=== PATIENT | female | born 1980 | race Caucasian/White ===

== ENCOUNTER 2018-08-23 11:02 | Day surgery (SDC) | payer MEDICAID, SELFPAY ==
[2018-08-23] VITALS (7 sets, daily range): BP systolic 111–136; BP diastolic 76–86; PULSE 65–74; RESP 16–18; TEMP 36.3–36.8; O2SAT 100; BMI 20.2
[2018-08-23 11:33] LABS: Internal QC Validated? YES +Cl - CLEAR BKGD; Pregnancy, Urine Negative Negative
--- NOTE | 2018-08-23 12:15 | RAD_ITS ---
PROCEDURE: Caudal block. DATE OF EXAMINATION: August 23, 2018. INDICATION: Female, 37 years old. Low back pain. FLUOROSCOPY TIME (if supplied): (0:07) minutes/seconds. 2 Cone down intraoperative views were obtained. Intraoperative fluoroscopic services provided for caudal block. RAD/Fluor Guidance for Spine Inj IMPRESSION: Intraoperative fluoroscopic services provided for caudal block. Electronically Signed: Riccardo Segal MD at 14:55 EDT Tel [phone], Service support ,
[2018-08-23] MEDS: Triamcinolone Acetonide 40 MG/ML Vial (13:07)
--- NOTE | 2018-08-23 13:13 | PCM.DC ---
- Discharge Diagnoses Current Active Problems: Lower back pain and radiating right leg pain You will use the following diet at home:: No restrictions Your food should be the consistency of: Regular Discharge Activity: Return to Normal Activity Return to work on:: 08/26/18 May resume sexual activity in: No Restrictions Weight Bearing Status: Weight bearing as tolerated Call your doctor if your incision/area has: Continuous Slow Oozing, Increased Pain/ Swelling, Swelling at the incision site Call your doctor if you observe: Fever of 101 or Higher, Calf discomfort, Uncontrolled pain Suture Line Care: Avoid Pulling/Pushing, Avoid Pinching/Bending Change Dressing in (Days):: 1 Remove Dressing in (days):: 1 Cleanse incision/area with: Soap & Water Instructions: What Is Osteoarthritis? Allergies/Adverse Reactions: Allergies codeine Allergy (Verified 08/19/18 13:48) Shortness of breath Medications to take at Discharge Cyclobenzaprine [Flexeril] 5 mg PO TID PRN PRN 08/19/18 Nabumetone [Relafen] 750 mg PO BID PRN 08/19/18 Quetiapine Fumarate [Seroquel] 50 mg PO QHS 08/19/18 Venlafaxine XR [Effexor Xr] 37.5 mg PO BID 08/19/18 Primary Care Physician: [facility] ,Out of [Primary Care Provider] - Test Results: Test results from this visit will be discussed in further detail at your follow-up appointment, if applicable. Please Follow Up With: Constanza Cruz MD
--- NOTE | 2018-08-23 13:16 | DCINST_ITS ---
- Discharge Diagnoses Current Active Problems: Lower back pain and radiating right leg pain You will use the following diet at home:: No restrictions Your food should be the consistency of: Regular Discharge Activity: Return to Normal Activity Return to work on:: 08/26/18 May resume sexual activity in: No Restrictions Weight Bearing Status: Weight bearing as tolerated Call your doctor if your incision/area has: Continuous Slow Oozing, Increased Pain/ Swelling, Swelling at the incision site Call your doctor if you observe: Fever of 101 or Higher, Calf discomfort, Uncontrolled pain Suture Line Care: Avoid Pulling/Pushing, Avoid Pinching/Bending Change Dressing in (Days):: 1 Remove Dressing in (days):: 1 Cleanse incision/area with: Soap & Water Instructions: What Is Osteoarthritis? Allergies/Adverse Reactions: Allergies codeine Allergy (Verified 08/19/18 13:48) Shortness of breath Medications to take at Discharge Cyclobenzaprine [Flexeril] 5 mg PO TID PRN PRN 08/19/18 Nabumetone [Relafen] 750 mg PO BID PRN 08/19/18 Quetiapine Fumarate [Seroquel] 50 mg PO QHS 08/19/18 Venlafaxine XR [Effexor Xr] 37.5 mg PO BID 08/19/18 Primary Care Physician: [facility] ,Out of [Primary Care Provider] - Test Results: Test results from this visit will be discussed in further detail at your follow- up appointment, if applicable. Please Follow Up With: Constanza Cruz MD
--- NOTE | 2018-08-23 13:16 | PCM.OPRPT ---
Problem List (1) Lumbar postlaminectomy syndrome Status: Acute (2) Lumbar postlaminectomy syndrome Status: Acute (3) Other intervertebral disc degeneration, lumbar region Status: Acute (4) Postlaminectomy syndrome, not elsewhere classified Status: Acute (5) Postlaminectomy syndrome, not elsewhere classified Status: Acute (6) Radiculopathy of lumbar region Status: Acute (7) Radiculopathy of lumbar region Status: Acute Report of Operation Date of Procedure: 08/23/18 Pre-Operative Diagnosis: Lumbar postlaminectomy syndrome and lumbar radiculopathy Post-Operative Diagnosis: See above Surgery/Procedure Performed:: Caudal epidural steroid injection under fluoroscopy guidance and monitored conscious sedation Type of Anesthesia:: Local MAC, MAC Special Medications: Kenalog 80 mg and diluted lidocaine 0.5%/preservative-free normal saline. p Betadine Specimen's removed: None Estimated Blood Loss (mL): None Description of Procedure: Under sterile conditions. Patient placed in the prone position, pressure points were padded, patient was ready from the nursing and the anesthesia team. After identification of the side and the target area for the block under guided fluoroscopy, the entry site was marked with marking pen. I used Betadine for sterilization of the skin, sterile draping were applied. Using 25-gauge needle to infiltrate the skin with local anesthesia using preservative-free lidocaine 0.5% injected 5 mL at site of entry. Using guided fluoroscopy, accessed the the posterior caudal /sacral epidural space using 22-gauge spinal needle under midline approach, access to the sacrococcygeal ligament passed through easily under fluoroscopy guidance, accessed the site was assisted with lateral fluoroscopy, negative aspiration of CSF and blood. Injected contrast solution [2.5] mL under live fluoroscopy which showed good spread of the contrast to the posterior sacral and lower lumbar epidural space and to the targeted area directed to the right/up to the level of o[ L4-5]. Injected [5] mL of mixture of preservative-free lidocaine 0.5% diluted with preservative-free normal saline and Kenalog [80] mg for the procedure which showed appropriate spread in the lumbosacral epidural space. Westhoff was removed, pressure dressing were applied. Patient tolerated the procedure well and was taken to the recovery. - Complications None
== END 2018-08-23 14:23 | disposition home or self-care (01) ==
LOC: SDC 11:03 → AC 11:04
PROVIDERS: Referring Provider Anesthesiology; Visit Provider Anesthesiology
PROC: 3E0S3BZ Introduction of Anesthetic Agent into Epidural Space, Percutaneous Approach (ICD-10-PCS; CPT 62282; principal; 2018-08-23 12:10)
DX: M96.1 Postlaminectomy syndrome, not elsewhere classified (principal); M51.16 Intervertebral disc disorders with radiculopathy, lumbar region; F12.90 Cannabis use, unspecified, uncomplicated; F41.9 Anxiety disorder, unspecified; F32.9 Major depressive disorder, single episode, unspecified; Z79.899 Other long term (current) drug therapy; F17.210 Nicotine dependence, cigarettes, uncomplicated; G25.81 Restless legs syndrome
CPT/HCPCS: 62323; 64483; 77003; 81025; J7120; J3490

== ENCOUNTER 2018-09-11 12:30 | Outpatient (RCR) | payer MEDICAID, SELFPAY ==
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
--- NOTE | 2018-08-13 15:02 | HP.PT.NRP ---
HP - Discharge Summary (1) - Patient Information LEIGHTON NEWBERRY was seen in my office for initial evaluation on 07/26/18. The following Plan of Care was established for this patient: Initial Frequency: 2x /Week Initial Duration: 4 Weeks - Anticipated Interventions Patient/Client Instruction: Educate patient on: Condition, Plan of Care For the Purpose of:: To improve self management Therapeutic Exercise to Include: Strength training, Endurance training, Body mechanics, Postural training, Dynamic Lumbar Stabilization For the Purpose of:: To decrease pain, To increase ROM, To improve muscle performance and motor function Cryotherapy (ice pack, ice massage): Yes Thermo therapy (hot pack): Yes For the Purpose of:: To decrease pain This patient was last seen in our office . Pertinent comments regarding their Physical therapy will appear below: Pt phoned the clinic on the date of 08/13/18 to report PT was not helping much and that he wanted to discontinue PT as he is scheduled for a MRI. Pt is discontinued at this time. At this point I will be discontinuing this patient from physical therapy. I would be happy to see this patient again in the future if found appropriate by the physician. Thank you! Darren Wilson, PT,
--- NOTE | 2018-09-11 13:51 | HP.PTDCSUM ---
HP - PT D/C Summary It has been my pleasure to treat LEIGHTON NEWBERRY under orders from Constanza Cruz MD, for the diagnosis of LBP for a total of 9 visit(s). Discharge Date: Please see the following information for a summary of their discharge status. - Subjective Subjective: Pt reports she is sore this date - Pain LBP Pain Intensity (Out of 10): 4 - Overall Improvement % Improvement: 70 - Objective Objective/Function: LBP is 4/10 this date. Pt reports No T or N in R LE this date. Core stability has increased, but pt is still limited with IADL's. Pt is I with HEP - Goals Goal 1:: Decrease LBP x 50% to aid with sleep Goal Progress: Progressing Goal 2:: Decrease the frequency and intensity of R LE radiculopathy x 50% to aid with increasing patrick for ambulation Goal Progress: Goal Met Goal 3:: Increase core stabilization x 1 grade to aid with increasing patrick for IADL's Goal Progress: Progressing Goal 4:: I with HEP Goal Progress: Goal Met - Plan Plan: Discontinue - D/C Information If there are questions or concerns regarding this patient's physical therapy, please feel free to call me at [phone]. Thank you for the referral of this patient. Sincerely, Darren Wilson, PT,
== END 2018-09-11 18:34 | disposition home or self-care (01) ==
LOC: PT 12:30
PROVIDERS: Visit Provider Anesthesiology
DX: M54.9 Dorsalgia, unspecified (principal); M79.606 Pain in leg, unspecified
CPT/HCPCS: 97110; 97162; 97530